=== PATIENT | female | born 1980 | race Caucasian/White ===

== ENCOUNTER 2019-09-03 12:55 | Emergency (ER) | payer MEDICAID, OTHER ==
[2019-09-03 13:12] VITALS: BP 108/62
[2019-09-03] MEDS ORDERED: KETOROLAC 30 MG/1 ML INJ IV ONE (13:38)
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
[2019-09-03] MEDS ORDERED: traMADol 50 MG TAB PO ONE (15:10)
== END 2019-09-03 15:23 | disposition home or self-care (01) ==
LOC: ED 12:55
DX: S20.222A Contusion of left back wall of thorax, initial encounter (principal); S20.221A Contusion of right back wall of thorax, initial encounter; S10.83XA Contusion of other specified part of neck, initial encounter; S40.011A Contusion of right shoulder, initial encounter; V49.88XA Car occupant (driver) (passenger) injured in other specified transport accidents, initial encounter; Y93.89 Activity, other specified; Y92.89 Other specified places as the place of occurrence of the external cause; Y99.8 Other external cause status
CPT/HCPCS: 71045; 72040; 72070; 72100; 73060; 96374; 99284; J1885